=== PATIENT | male | born 1985 | race Caucasian/White ===

== ENCOUNTER 2018-10-21 20:47 | Emergency (ER) | payer SELFPAY ==
[2018-10-21] MEDS ORDERED: LORazepam 1 MG Tab PO ONE ×2 (21:55→22:43)
--- NOTE | 2018-10-21 21:58 | EDM.PDOCBH ---
ED HPI GENERAL MEDICAL PROBLEM - General Chief Complaint: Drug or Alcohol Abuse Stated Complaint: DETOX VIA [facility] Time Seen by Provider: 10/21/18 21:56 Source of Information: Reports: Patient, EMS History Limitations: Reports: No Limitations - History of Present Illness INITIAL COMMENTS - FREE TEXT/NARRATIVE: When pt was first arriving at [facility] he was arching his back and he felt like he was having back spasms. He has not had a history of back problems. He feels like it has stopped at this time. He did have a very high [facility]oh [facility] at [facility] [place]. Pt does remember the spasms. Onset: Today, Sudden, Other ( Pt has not had adrink since early AM. ) Duration: Hour(s): Location: Reports: Back Associated Symptoms: Reports: No Other Symptoms, Other (Pt is quite agitated at this point. ) - Related Data Allergies Allergy/AdvReac Type Severity Reaction Status Date / Time No Known Allergies Allergy Verified 10/21/18 21:05 Home Meds: Home Meds Sertraline [Zoloft] 25 mg PO DAILY 10/21/18 [History] Past Medical History Psychiatric History: Reports: Anxiety, Depression - Past Surgical History Musculoskeletal Surgical History: Reports: Other (See Below) Other Musculoskeletal Surgeries/Procedures:: surgery on broken leg had pins in but those were taken out Social & Family History - Tobacco Use Smoking Status *Q: Never Smoker - Caffeine Use Caffeine Use: Reports: Coffee - Alcohol Use Days Per Week of Alcohol Use: 7 Number of Drinks Per Day: 15 Total Drinks Per Week: 105 - Recreational Drug Use Recreational Drug Use: No ED ROS GENERAL - Review of Systems Review Of Systems: See Below Constitutional: Reports: No Symptoms HEENT: Reports: No Symptoms Respiratory: Reports: No Symptoms Cardiovascular: Reports: No Symptoms Endocrine: Reports: No Symptoms GI/Abdominal: Reports: No Symptoms : Reports: No Symptoms Musculoskeletal: Reports: Other (pt was having severe back spasms. He states he just was not able to relax. ) Neurological: Reports: No Symptoms Psychiatric: Reports: Agitation ED EXAM, BEHAVIORAL HEALTH - Physical Exam Exam: See Below Text/Narrative:: pt is alert and is walking around. He is quite agitated, He is asking for something to relax. Exam Limited By: No Limitations General Appearance: Alert, Anxious, Mild Distress, Other (pupils are equal and reactive, ) Ears: Normal TMs Nose: Normal Inspection Throat/Mouth: Normal Inspection Head: Atraumatic Neck: Normal Inspection Respiratory/Chest: No Respiratory Distress Cardiovascular: Regular Rate, Rhythm GI/Abdominal: Soft, Non-Tender (Male) Exam: Deferred Rectal (Males) Exam: Deferred Back Exam: Normal Inspection Extremities: Normal Inspection Neurological: Alert, Normal Cognition Psychiatric: Alert, Restless, Agitated COURSE, BEHAVIORAL HEALTH COMP - Course Vital Signs: Last Vital Signs Temp 35.6 C 10/21/18 21:04 Pulse 108 H 10/21/18 21:04 Resp 11 L 10/21/18 21:04 BP 136/66 10/21/18 21:04 Pulse Ox 94 L 10/21/18 21:04 Orders, Labs, Meds: Laboratory Tests 10/21/18 10/21/18 10/21/18 Range/Units 21:55 21:55 21:55 WBC 13.6 H (4.5-11.0) K/uL RBC 5.00 (4.30-5.90) M/uL Hgb 14.7 (12.0-15.0) g/dL Hct 42.5 (40.0-54.0) % MCV 85 (80-98) fL MCH 29 (27-31) pg MCHC 35 (32-36) % Plt Count 271 (150-400) K/uL Neut % (Auto) 84 H (36-66) % Lymph % (Auto) 12 L (24-44) % Mclennan % (Auto) 5 (2-6) % Eos % (Auto) 0 L (2-4) % Baso % (Auto) 0 (0-1) % Sodium 137 L (140-148) mmol/L Potassium 4.1 (3.6-5.2) mmol/L Chloride 98 L (100-108) mmol/L Carbon Dioxide 22 (21-32) mmol/L Anion Gap 21.1 H (5.0-14.0) mmol/L BUN 10 (7-18) mg/dL Creatinine 0.9 (0.8-1.3) mg/dL Est Cr Clr Drug Dosing 110.83 mL/min Estimated GFR (MDRD) > 60 (>60) Glucose 97 (74-106) mg/dL Calcium 8.5 (8.5-10.1) mg/dL Total Bilirubin 0.6 (0.2-1.0) mg/dL AST 63 H (15-37) U/L ALT 44 (12-78) U/L Alkaline Phosphatase 74 (46-116) U/L Total Protein 7.8 (6.4-8.2) g/dL Albumin 4.1 (3.4-5.0) g/dL Globulin 3.7 H (2.3-3.5) g/dL Albumin/Globulin Ratio 1.1 L (1.2-2.2) Urine Opiates Screen Negative (NEGATIVE) Ur Oxycodone Screen Negative (NEGATIVE) Urine Methadone Screen Negative (NEGATIVE) Ur Propoxyphene Screen Negative (NEGATIVE) Ur Barbiturates Screen Negative (NEGATIVE) Ur Tricyclics Screen Negative (NEGATIVE) Ur Phencyclidine Scrn Negative (NEGATIVE) Ur Amphetamine Screen Negative (NEGATIVE) U Methamphetamines Scrn Negative (NEGATIVE) Urine MDMA Screen Negative (NEGATIVE) U Benzodiazepines Scrn Negative (NEGATIVE) U Cocaine Metab Screen Negative (NEGATIVE) U Marijuana (THC) Screen Negative (NEGATIVE) Medications Discontinued Medications Generic Name Dose Route Start Last Admin Trade Name Yovanny PRN Reason Stop Dose Admin Lorazepam 1 mg 10/21/18 21:55 10/21/18 22:00 Ativan PO 10/21/18 21:56 1 mg ONETIME ONE Administration Lorazepam 1 mg 10/21/18 22:43 10/21/18 22:50 Ativan PO 10/21/18 22:44 1 mg ONETIME ONE Administration Medical Clearance: 10/21/18 22:54 a repeat drug screen was done and electrolytes. These did appear to be normal. His drug screen was neg. Pt is up walking around. He is feeling agitated. Departure - Departure Time of Disposition: 22:45 Disposition: DC/Tfer to [facility] Condition: Fair Clinical Impression: Spasm of back muscles, Withdrawal symptoms, alcohol - Discharge Information Instructions: Muscle Cramps and Spasms Referrals: PCP,None [Primary Care Provider] - Forms: ED Department Discharge Care Plan Goals: discharge to [place], push fluids ans use withdrawal meds
== END 2018-10-21 23:45 ==
LOC: JP.ED 20:47
DX: M62.830 Muscle spasm of back (principal); F10.239 Alcohol dependence with withdrawal, unspecified; F41.9 Anxiety disorder, unspecified; F32.9 Major depressive disorder, single episode, unspecified; Z79.899 Other long term (current) drug therapy
CPT/HCPCS: 36415; 80053; 80305; 85025; 99284; A9270